=== PATIENT | female | born 1985 | race Caucasian/White ===

== ENCOUNTER 2017-02-02 17:27 | Emergency (ER) | payer BC, OTHER ==
[~2017-02-02] VITALS: Ht 157.5 cm; Wt 52.0 kg
[~2017-02-02 17:27] MED LIST: IBUP600 PO; OXYC1SOL5 PO; PERI8.6T PO; PREN1TAB30
[2017-02-02 17:38] VITALS: BP 103/75; PULSE 119; RESP 16; TEMP 102; O2SAT 98
[2017-02-02 18:04] VITALS: BP 128/65; PULSE 117; RESP 16; TEMP 100.9; O2SAT 100
[2017-02-02] MEDS ORDERED: CEPH-460 PO (18:14)
--- NOTE | 2017-02-02 18:14 | PD ---
HPI Chief Complaint: Cold / Flu Symptoms Time Seen by Provider: 17:57 Travel History International Travel<30 days: No Contact w/Intl Traveler<30days: No Traveled to known affect area: No History of Present Illness HPI Patient presents complaining with sore throat, fever, headache and nausea. Onset of symptoms was yesterday. Symptoms have been getting progressively worse. She has not tried anything at home prior to presentation. Sore throat is exacerbated by swallowing. Her is here with similar symptoms. PFSH Past Medical History Diminished Hearing: No Tetanus Vaccination: < 5 Years ?: Unknown LMP: breast feeding no menses Social History Alcohol Use: No Tobacco Use: No Substance Use: No Allergies-Medications (Allergen,Severity, Reaction): Coded Allergies: Zithromax (Verified Allergy, Severe, FINE RASH, 02/02/17) Amoxicillin (Verified Allergy, Intermediate, Rash, 02/02/17) Reported Meds & Prescriptions Reported Meds & Active Scripts Active No Active Prescriptions or Reported Medications Review of Systems Except as stated in HPI: all other systems reviewed are Neg General / Constitutional: Positive: Fever, Chills HENT: Positive: Sore Throat Respiratory: No: Cough Gastrointestinal: Positive: Nausea, No: Vomiting Physical Exam Narrative GENERAL: Awake and alert and in no acute distress. Patient's breath smells like strep. SKIN: Warm and dry. HEAD: Atraumatic. Normocephalic. EYES: Pupils equal and round. ENT: Oropharynx is erythematous. Tonsils are enlarged with exudate. There is no peritonsillar edema. NECK: Trachea midline. Shotty cervical lymphadenopathy. CARDIOVASCULAR: Tachycardic rate, regular rhythm. RESPIRATORY: No accessory muscle use. Lungs are clear with full air movement throughout. MUSCULOSKELETAL: No obvious deformities. No edema. NEUROLOGICAL: Awake and alert. No obvious cranial nerve deficits. Motor grossly within normal limits. Normal speech. PSYCHIATRIC: Appropriate mood and affect; insight and judgment normal. Data Data Last Documented VS Vital Signs Date Time Temp Pulse Resp B/P Pulse Ox O2 Delivery O2 Flow Rate FiO2 02/02/17 17:55 16 98 Room Air 02/02/17 17:38 102.0 119 103/75 [facility] Medical Decision Making Medical Screen Exam Complete: Yes Emergency Medical Condition: Yes Differential Diagnosis Differential diagnosis of sore throat includes but is not limited to viral illness, strep throat, mononucleosis, retropharyngeal abscess, peritonsillar abscess Narrative Course Patient presents complaining with sore throat associated with fever. Breath smells like strep. She will be treated presumptively for strep. Diagnosis Primary Impression: Strep pharyngitis Patient Instructions: General Instructions, Strep Throat (DC) Med/Other Pt SpecificInfo: Prescription(s) given Scripts Cephalexin (Keflex)500 Mg [id number] Mg PO Q8H #21 CAP Ref 0 Prov:Paris Tsai MD 02/02/17 Disposition: 01 DISCHARGE HOME Condition: Stable Paris Tsai MD February 02, 2017 18:14
== END 2017-02-02 18:30 | disposition home or self-care (01) ==
LOC: PHED 17:27
DX: J02.0 Streptococcal pharyngitis (principal)
CPT/HCPCS: 99283